=== PATIENT | male | born 1950 | race Caucasian/White ===

== ENCOUNTER 2016-11-14 21:16 | Emergency (ER) | payer BC ==
[~2016-11-14 21:16] MED LIST: ASAB PO; COREG6 PO; CRESTOR10 PO; CRESTOR40 MG PO; HYZAAR 100/25 T1 TAB PO; HYZAAR 50/12.51 TAB PO; JANTOVEN1 MG PO; JANTOVEN3 MG PO; JANTOVEN4 MG PO; L20 PO; LOP25 PO; LOVENOX SC; LOVENOX80 SC; PACERONE100 MG PO; PACERONE200 MG PO; ZETIA PO; ZOCOR20 PO; ZOCOR80 MG PO
[2016-11-14 22:09] LABS: BASOPHILS 0.4 %; BASOPHILS ABSOLUTE 0.03 10/3/uL (0.0-0.16); EOSINOPHILS 2.7 %; ER CBC TAT 0 Hrs 05 Mins; HEMATOCRIT 38.9 % (40.0-51.0); HEMOGLOBIN 13.5 g/dL (13.6-17.8); IMMATURE GRANULOCYTES 0.1 %; IMMATURE GRANULOCYTES ABSOLUTE 0.01 10/3/uL (0.0-0.11); LYMPHOCYTES 22.6 %; LYMPHOCYTES ABSOLUTE 1.66 10/3/uL (0.67-4.30); MEAN CORPUS HGB CONC 34.7 g/dL (32.0-36.0); MEAN CORPUSCULAR HEMOGLOB 30.5 pg (26.0-34.0); MEAN PLATELET VOLUME 10.1 fL (9.2-13.0); MONOCYTES 10.2 %; MONOCYTES ABSOLUTE 0.75 10/3/uL (0.21-1.20); PLATELET COUNT 169 10/3/uL (150-400); RBC DISTRIBUTION WIDTH 12.8 % (12.0-16.0); RED CELL COUNT 4.43 10/6/uL (4.7-6.1); WHITE BLOOD CELLS 7.4 10/3/uL (4.5-10.5)
[2016-11-14 22:14] LABS: MANUAL DIFF NO %; MEAN CORPUSCULAR VOLUME 87.8 fL (80-100)
[2016-11-14 22:25] LABS: ALBUMIN 3.5 G/DL (3.5-5.0); BUN (BLOOD UREA NITROGEN) 15 MG/DL (6-23); CALCIUM, SERUM 8.7 MG/DL (8.5-10.4); CHLORIDE, SERUM 106 MMOL/L (96-112); CO2 (CARBON DIOXIDE) 27 MMOL/L (24-34); CREATININE 1.24 MG/DL (0.70-1.30); GFR AFRICAN AMERICAN 70 ML/MIN (>=60); GFR NON AFRICAN AMERICAN 60 ML/MIN (>=60); GLOBULIN 3.6 G/DL (2.5-4.1); POTASSIUM, SERUM 3.8 MMOL/L (3.5-5.3); SGOT(AST) 22 U/L (5-40); SGPT(ALT) 36 U/L (5-65); SODIUM, SERUM 142 MMOL/L (135-148); TOTAL PROTEIN 7.1 G/DL (6.0-8.5)
[2016-11-14 22:26] LABS: ALKALINE PHOSPHATASE 97 U/L (45-117); GLUCOSE, SERUM 165 MG/DL (60-99)
== END 2016-11-14 23:04 | disposition home or self-care (01) ==
LOC: ER 21:16
PROVIDERS: Emergency Medicine
DX: R55 Syncope and collapse (principal); E78.5 Hyperlipidemia, unspecified; I10 Essential (primary) hypertension; Z86.73 Personal history of transient ischemic attack (TIA), and cerebral infarction without residual deficits; I48.91 Unspecified atrial fibrillation; Z95.5 Presence of coronary angioplasty implant and graft; Z79.01 Long term (current) use of anticoagulants; Z79.899 Other long term (current) drug therapy
CPT/HCPCS: 80053; 85025; 93005; 99284

== ENCOUNTER 2017-02-12 07:47 | Inpatient (IN) | payer MEDICARE, BC ==
--- NOTE | ~2017-02-12 | HP ---
History And Physical [facility] [address] [place]. [address] NAME: SYLVIA LEWIS : 48 STATUS : ADM Kuldip PAT#: [id number] AGE: 66 ADM/REG DATE : 02/12/17 MR#: [id number] REPORT SERV DATE: 02/13/17 DICTATED BY: SUSANNE THOMAS DATE: 02/12/17 REPORT STATUS : Draft TRANSCRIBED BY: MODL DATE: 02/12/17 DATE OF ADMISSION: 02/12/2017 RESIDENT: Eliud Ferrer MD. CHIEF COMPLAINT: Abdominal pain, nausea. HISTORY OF PRESENT ILLNESS: This is a 66-year-old male with a history of atrial fibrillation on Pradaxa with 24 hours of worsening nausea, vomiting, and umbilical abdominal pain. Of note, he had a recent admit at an outside hospital for similar complaints and was discharged this past Saturday having received IV fluid resuscitation and was tolerating p.o. at that time. However, he states at home, when he tried to have dinner, he had immediate return of his nausea and vomiting and abdominal pain. The patient stated he has had slow progression of these symptoms for approximately the past week. However, he has never had these symptoms before this. Denies any fevers or chills. Denies any recent weight loss. States his last bowel movement was approximately one week ago, at that time, it was not bloody, but was diarrhea. I think his last flatus was approximately 24-48 hours ago. Denies any chest pain, shortness of breath, headache, or dysuria. PAST MEDICAL HISTORY: Atrial fibrillation, COPD, hyperlipidemia, CVA. PAST SURGICAL HISTORY: Colonoscopy, exploratory laparotomy with partial sigmoidectomy for a large polyp, surgery performed by Dr. Palomares in 2010. ALLERGIES: NO KNOWN DRUG ALLERGIES. HOME MEDICATIONS: Statin, Pradaxa, Zetia, carvedilol, and albuterol. FAMILY HISTORY: Cervical cancer. SOCIAL HISTORY: Prior smoker, quit approximately nine years ago. Denies any alcohol or illicit drug use. REVIEW OF SYSTEMS: Pertinent positives and negatives as above in the HPI. Full 12-point review of systems was completed with no other pertinent findings. PHYSICAL EXAMINATION: VITAL SIGNS: Temperature 97.5, blood pressure 118/61, heart rate 108, respiration of 19 with 98% on room air. GENERAL: This is an adult white male, in no acute distress. He is alert and oriented x3. He is not toxic appearing. CARDIOVASCULAR: Irregularly irregular rhythm. PULMONARY: Clear to auscultation bilaterally. ABDOMEN: Hypoactive bowel sounds. Abdomen is soft. It is mildly distended. It is mildly tender to palpation focally at the umbilicus. There is no rebound. No guarding. No History And Physical [address] [place]. [address] NAME: SYLVIA LEWIS : 49 STATUS : ADM Kuldip PAT#: [id number] AGE: 66 ADM/REG DATE : 02/12/17 MR#: [id number] REPORT SERV DATE: 02/13/17 DICTATED BY: SUSANNE THOMAS DATE: 02/12/17 REPORT STATUS : Draft TRANSCRIBED BY: ANSHUL DATE: 02/12/17 diffuse peritonitis. There are no masses or hernias noted. LABORATORY DATA: White count 7.4, hematocrit 46.8, platelets 182. Renal panel significant for a creatinine of 1.74. Urinalysis was negative. All LFTs are mildly elevated and as follows: Total bilirubin 1.8, alkaline phosphatase 148, ALT 73, AST 56, lipase 416. IMAGING: CT of the abdomen and pelvis significant for small bowel obstruction likely transition point mid to distal ilium. ASSESSMENT AND PLAN: This is a 66-year-old male with history of atrial fibrillation, cerebrovascular accident on Pradaxa with a small-bowel obstruction. 1. The patient is currently hemodynamically stable. He is nontoxic and has a benign abdomen. We will continue n.p.o. with NG tube and IV fluid resuscitation. We will plan for morning flat and upright abdominal x-ray. The patient does not have return of bowel function. No improvement in symptoms. We will likely need a small-bowel follow- through contrast study in the next one to two days. 2. Hospitalist has been consulted for his multiple medical issues and appreciate their recommendation. We will hold Pradaxa for now given possibility of intervention. GI has been following the patient for his need for colonoscopy and also given his elevated LFTs, although this may be secondary to his nausea and vomiting. 3. Acute kidney injury. We will continue IV fluids. Strict I's and O's. We will recheck a morning CMP. [place]/ANSHUL Susanne Thomas MD / [id number] CC: MD Ortiz Grant M.D.
--- NOTE | ~2017-02-12 | DS ---
Discharge Summary [facility] [address] [place]. [address] NAME: SYLVIA LEWIS : 49 STATUS : DIS IN PAT#: [id number] AGE: 66 ADM/REG DATE : 02/12/17 MR#: [id number] REPORT SERV DATE: 02/22/17 DICTATED BY: SUSANNE THOMAS DATE: 02/21/17 REPORT STATUS : Draft TRANSCRIBED BY: MODBlayne DATE: 02/21/17 Data Collection from hospitalization DISCHARGE DIAGNOSES: 1. Small bowel obstruction - resolving. 2. Former smoker. 3. History of mini stroke. 4. Chronic obstructive pulmonary disease. 5. History of atrial fibrillation. 6. Hyperlipidemia. CONSULTATIONS: 1. Marlee Kennedy M.D. 2. Elaine Lopez M.D. 3. Juan Santoro M.D. PROCEDURES PERFORMED: CT scan of the abdomen and pelvis without contrast on 02/12/2017. MEDICATIONS: ProAir two puffs via inhaler as needed, Coreg 6.25 mg twice a day, Pradaxa 150 mg twice a day, Zetia 10 mg at bedtime, Protonix one tablet daily, and Zocor 20 mg daily. CONDITION AT DISCHARGE: Stable. DISPOSITION: The patient was discharged home on a soft diet with activities as instructed. He would follow up with Dr. Ortiz Humphrey on 03/04/2017. He would follow up with Dr. Susanne Thomas as needed. He would follow up with Dr. Elaine Lopez as instructed. He would follow up with Dr. Juan Santoro on 02/28/2017. HOSPITAL COURSE: This is a 66-year-old man who has a history of atrial fibrillation. He is on Pradaxa with 24 hours of worsening nausea, vomiting, and umbilical abdominal pain. He was a recent admit at an outside hospital for similar complaints and had been discharged Saturday prior to this admission having received IV fluid resuscitation. He was tolerating oral intake at that time. The patient said that at home when he tried to have dinner, he had the immediate return of his nausea, vomiting, and abdominal pain. He said that he had slow progression of these symptoms for approximately the past week, however, he has never had these symptoms previously. He denied any fevers or chills. He denied weight loss. He said that his last bowel movement was approximately one week ago. At that time, it was not bloody, but it was diarrhea. He said he last passed flatus 24 to 48 hours prior to this admission. He was admitted to the hospital for further evaluation and treatment. Upon admission, creatinine level was 1.74. He was currently hemodynamically stable. He was nontoxic. His abdomen was benign. He remained n.p.o. with an NG tube and IV fluid resuscitation. The patient does not have return of bowel function at this time. If he did not have return of bowel function and if there were no improvement in his symptoms, he would likely need a small bowel followthrough contrast study in the next one to two days. Pradaxa was going to be held for now. He had elevated liver function tests. He was seen by Dr. Marlee Kennedy regarding management of chronic medical problems. The patient said that he has a history of atrial fibrillation for which he takes Pradaxa. He had a mini stroke in Discharge Summary [address] [address] NAME: SYLVIA LEWIS : 48 STATUS : DIS IN PAT#: [id number] AGE: 66 ADM/REG DATE : 02/12/17 MR#: [id number] REPORT SERV DATE: 02/22/17 DICTATED BY: SUSANNE THOMAS DATE: 02/21/17 REPORT STATUS : Draft TRANSCRIBED BY: ANSHUL DATE: 02/21/17 the past without any residual deficits. Beta-haydee, carvedilol, and Pradaxa would be continued once it was okay with surgery. Right now, the patient had received a morning dose and we would keep Pradaxa on hold until it was okay to restart. The patient did not have any chest pain at this time. Serial troponins would be checked. The patient does have mild acute kidney injury secondary to dehydration. IV fluids had been started. Liver enzymes were mildly elevated. Cholesterol medications were going to be held. He has had a CT scan of the abdomen and pelvis without contrast. The following day, he was seen by Dr. Elaine Lopez regarding bowel obstruction and elevated liver enzymes. The patient has what appears to be an obstruction in the small bowel at the level of the proximal ileum, possible scar tissue. Liver enzymes were elevated, the exact etiology was unclear at this point. He does have a history of alcohol. His enzymes were improving at this time. From a liver standpoint, we would follow enzymes and do some other serologies. He was also seen by Dr. Juan Santoro regarding abnormal electrocardiogram. The electrocardiogram was ordered and showed his chronic atrial fibrillation. He also has some lateral ST changes. He had no cardiovascular issues or other symptoms in the past several weeks or even months. The echocardiogram demonstrated atrial fibrillation with a rate in the 80s. He had a normal axis. There was good R-wave progression. He had lateral ST depression, somewhat upsloping. Creatinine level was 1.5. Cardiac enzymes were negative. IV heparin was started, this would be discontinued at any time if he needed some sort of procedure or surgery. We would watch for bleeding. No further intervention for the atrial fibrillation was required at this time. He does have lateral changes which may just be due to his noncardiac illness at this time. He denied chest pain. Beta-haydee was continued. Anticoagulation was added. Repeat electrocardiogram would be performed. On 02/14/2017, he was feeling better. He had multiple bowel movements. After a small bowel followthrough was performed, the NG tube was removed. Clear liquids were being provided. Discharge planning was performed. He said he felt much better. He had no palpitations or chest pain. A nuclear medicine stress test would be performed as an outpatient. Small bowel obstruction was resolving. On 02/15/2017, he was feeling good. He was tolerating his regular diet. He had a bowel movement. The small bowel obstruction had resolved. Discharge instructions were given. Due to his improved and stable condition, he was discharged home with the above-stated instructions. Information collected by: Jazmin Hendrix I submit the above information as my discharge summary. TG/MODL Susanne Thomas MD / [id number] CC: MD Ortiz Grant M.D. Vijaykurmar Patel, M.D. Discharge Summary [address] [address] NAME: SYLVIA LEWIS : 49 STATUS : DIS IN PAT#: [id number] AGE: 66 ADM/REG DATE : 02/12/17 MR#: [id number] REPORT SERV DATE: 02/22/17 DICTATED BY: SUSANNE THOMAS OMER DATE: 02/21/17 REPORT STATUS : Draft TRANSCRIBED BY: MODL DATE: 02/21/17 Juan Santoro M.D.
--- NOTE | ~2017-02-12 | CN ---
Consultation Report [address] [place]. [address] NAME: SYLVIA LEWIS : 48 STATUS : ADM IN PAT#: [id number] AGE: 66 ADM/REG DATE : 02/12/17 MR#: [id number] REPORT SERV DATE: 02/13/17 DICTATED BY: JUAN SANTORO DATE: 02/13/17 REPORT STATUS : Draft TRANSCRIBED BY: MODL DATE: 02/13/17 CONSULTATION DATE OF CONSULTATION: 02/13/2017 REASON FOR THE VISIT: Abnormal electrocardiogram. HISTORY OF PRESENT ILLNESS: Mr. Lewis is a 66-year-old man known to me with chronic atrial fibrillation and history of coronary artery disease. He has been admitted for gastrointestinal problems including a small bowel obstruction it seems. He denies any chest pain. Electrocardiogram has been ordered and shows his chronic atrial fibrillation. He does also seem to have some lateral ST changes. He has had no cardiovascular issues or other symptoms in the last several weeks or even months. PAST MEDICAL HISTORY: 1. Chronic atrial fibrillation. 2. History of ventricular tachycardia. 3. History of hypertrophic cardiomyopathy. 4. Hypertension. 5. Hyperlipidemia. 6. Coronary artery disease. FAMILY HISTORY: There is heart disease in his family. SOCIAL HISTORY: This is negative. Family is in the room. Nonsmoker now. HOME MEDICATIONS: 1. Albuterol inhaler. 2. Coreg 6.25 mg b.i.d. 3. Pradaxa 150 mg b.i.d. 4. Zetia 10 mg every night at bedtime. 5. Zocor 10 mg daily. ALLERGIES: NO KNOWN DRUG ALLERGIES. REVIEW OF SYSTEMS: A 10-system review was asked and is negative except for noted above in the history of present illness. PHYSICAL EXAMINATION: VITAL SIGNS: Temperature 98.3, heart rate 80, blood pressure 105/70. GENERAL: Mr. Lewis is a well-developed man in no acute distress. He is alert and oriented to person and place. HEENT: Negative. He is not dehydrated. Consultation Report [address] [place]. [address] NAME: SYLVIA LEWIS : 49 STATUS : ADM IN PAT#: [id number] AGE: 66 ADM/REG DATE : 02/12/17 MR#: [id number] REPORT SERV DATE: 02/13/17 DICTATED BY: JUAN SANTORO DATE: 02/13/17 REPORT STATUS : Draft TRANSCRIBED BY: MODL DATE: 02/13/17 NECK: No JVD in his neck. LUNGS: Clear. HEART: Tones are irregular. Slight murmur is heard. ABDOMEN: Demonstrates a little tenderness to palpation. He has an NG tube in. EXTREMITIES: Does not show edema. NEUROLOGIC: He is intact with normal speech and normal equal movement of all four extremities. SKIN: Does not show any rash or bruising. ELECTROCARDIOGRAMS: Demonstrate atrial fibrillation with a rate in the 80s. He has a normal axis. Good R-wave progression. He has a lateral ST depression, somewhat upsloping. LABORATORY DATA: White blood cell count 6, hematocrit 44, and platelet count 173. INR 1.3. Cardiac enzymes are negative. Sodium 141, potassium 4.0, BUN 30, and creatinine 1.5. IMPRESSION: 1. Chronic atrial fibrillation. 2. Lateral ST changes. 3. History of coronary artery disease. 4. No cardiovascular symptoms. 5. Small bowel obstruction. PLAN: Right now, Mr. Lewis does need to be on therapeutic anticoagulation because of his elevated CHADS-VASc score and his atrial fibrillation. I will start IV heparin. This can be discontinued at any time if he needs any sort of procedure or surgery. He will watch for bleeding. No further intervention for the atrial fibrillation is required. He does have lateral changes which may just be due to his noncardiac illness at this time. He denies any chest pain. Cardiac enzymes are negative. He will continue his beta haydee. We will add anticoagulation as above. I will repeat the electrocardiogram. As long as he remains stable without any new changes, we may just very well watch this. He and his family are in agreement. Thank you very much for the consultation. [facility]/ANSHUL Juan Santoro M.D. / [id number] CC: Emiliano Thomas MD Consultation Report [address] [place]. [address] NAME: SYLVIA LEWIS : 49 STATUS : ADM IN PAT#: [id number] AGE: 66 ADM/REG DATE : 02/12/17 MR#: [id number] REPORT SERV DATE: 02/13/17 DICTATED BY: JUAN SANTORO DATE: 02/13/17 REPORT STATUS : Draft TRANSCRIBED BY: ANSHUL DATE: 02/13/17 Ortiz Humphrey M.D.
--- NOTE | ~2017-02-12 | CN ---
Consultation Report [facility] [address] [place]. [address] NAME: SYLVIA LEWIS : 48 STATUS : ADM Kuldip PAT#: [id number] AGE: 66 ADM/REG DATE : 02/12/17 MR#: [id number] REPORT SERV DATE: 02/12/17 DICTATED BY: TRISHA ALMARAZ DATE: 02/12/17 REPORT STATUS : Draft TRANSCRIBED BY: MODL DATE: 02/12/17 CONSULTATION DATE OF CONSULTATION: 02/12/2017 REASON FOR CONSULT: Management of chronic medical problems. HISTORY OF PRESENT ILLNESS: The patient is a very pleasant 66-year-old male, who is admitted under General Surgery, Dr. Thomas for small bowel obstruction. I am consulted for patient's chronic medical problems. The patient reported that he was having diarrhea initially and then he stopped having bowel movements for this reason, he went to [place], where he was getting IV fluids, and then afterwards he was discharged with improvement. He came back with complaining of abdominal pain, nausea, and no evidence of bowel movements. So, emergency room contacted the general surgeon to admit. General surgeon Dr. Thomas asked me to see patient for his medical problem. The patient says that he has history of atrial fibrillation, for which he takes Pradaxa. He had a mini stroke in the past without any residual deficit. He denies any chest pain, no shortness of breath. He has history of COPD, he used to smoke, but currently he does not smoke. He denies any history of heart attacks. No thyroid disease. No diabetes. SURGICAL HISTORY: Polyp surgically removed from his colon, it was not a cancer according to the patient. ALLERGIES: NO KNOWN DRUG ALLERGIES. SOCIAL HISTORY: Quit smoking nine years ago. He used to smoke two packs per day. No alcohol. No recreational drug use. FAMILY HISTORY: Mother at age of 78 from cervical cancer. Father was healthy according to the patient. HOME MEDICATIONS: Albuterol two puffs inhaled as needed, carvedilol 6.25 p.o. b.i.d., Pradaxa 150 p.o. b.i.d. the patient already took in the morning. Zetia 10 mg a day and simvastatin 20 mg a day. REVIEW OF SYSTEMS: All 14-point review of system done. No chest pain. No shortness of breath. No fever. All 14-point review of systems done and negative except what is stated in the history of present illness. PHYSICAL EXAMINATION: GENERAL: Well-nourished, well-developed male, not in acute distress. Resting quietly. VITAL SIGNS: Blood pressure 128/75, temperature 98, heart rate 91, respiratory rate 22, oxygen saturation 98 on room air. Consultation Report [address] [place]. [address] NAME: SYLVIA LEWIS : 48 STATUS : ADM Kuldip PAT#: [id number] AGE: 66 ADM/REG DATE : 02/12/17 MR#: [id number] REPORT SERV DATE: 02/12/17 DICTATED BY: TRISHA ALMARAZ DATE: 02/12/17 REPORT STATUS : Draft TRANSCRIBED BY: ANSHUL DATE: 02/12/17 HEENT: Head atraumatic and normocephalic. Conjunctivae clear. Pupils are equal and reactive to light and accommodation. Extraocular muscles are intact. NECK: Supple. Trachea is midline. No supraclavicular or cervical lymphadenopathy. LUNGS: Diminished breath sounds bilaterally. Decreased respiratory effort. CARDIOVASCULAR: Irregularly irregular rate and rhythm. Point of maximal impulse not displaced. ABDOMEN: Soft. There is mild tenderness to palpation in the mid abdominal area. There is no guarding. No rebound. Completely benign abdominal examination. Slightly diminished bowel sounds. EXTREMITIES: No clubbing, cyanosis, or edema. SKIN: Normal color and turgor. LABORATORY DATA: Sodium 139, potassium 4.5, chloride 100, carbon dioxide 32, BUN 24, creatinine 1.74, blood sugar 123, total bilirubin 1.8. Alkaline phosphatase 148, ALT 73, AST 56, lipase 416, white count 7.4, hemoglobin 15.9, hematocrit 46.8, platelet count is 182. Urinalysis showed no evidence of urinary infection. CT of the abdomen and pelvis showed small bowel obstruction, probably in the proximal ileum. The stomach is distended and fluid-filled loops of jejunum are distended and fluid-filled measuring to 4.9 cm in diameter. His x-ray KUB done showed NG tube in the fundus of the stomach. EKG showed atrial fibrillation with a rate of 82, some a ST-T waves abnormality, with prolonged QT interval, and some LVH changes. ASSESSMENT AND PLAN: This is a 66-year-old male, admitted under General Surgeon, Dr. Thomas for his small-bowel obstruction. Small-bowel obstruction per Dr. Thomas. I am consulted for medical problems. 1. Atrial fibrillation, currently rate controlled. We will continue his beta haydee, carvedilol, and Pradaxa needs to be continued once it is okay with Dr. Thomas. Right now, the patient had a morning dose will keep Pradaxa on hold until Dr. Thomas will say if it is okay to restart. The patient does not have any chest pain. We will check just serial troponins on this patient. 2. Mild acute kidney injury, secondary to dehydration. The patient is already started on IV fluids per general surgeon. 3. Mildly elevated liver enzymes. We will hold his cholesterol medications, but this could be related also to some biliary problems. We will ask the patient's GI doctor Dr. Joellen Lopez to look at it. Since, the patient also said that he needs to see his hospice admitting clerk and for this reason, he was discharged from [facility] yesterday. We will follow up on this patient. MG/MODL Trisha Consultation Report [address] [address] NAME: SYLVIA LEWIS : 48 STATUS : ADM Kuldip PAT#: [id number] AGE: 66 ADM/REG DATE : 02/12/17 MR#: [id number] REPORT SERV DATE: 02/12/17 DICTATED BY: TRISHA ALMARAZ DATE: 02/12/17 REPORT STATUS : Draft TRANSCRIBED BY: MODBlayne DATE: 02/12/17 Leesa Almaraz / [id number] CC: MD Ortiz Grant M.D.
--- NOTE | ~2017-02-12 | CN ---
Consultation Report [facility] [address] [place]. [address] NAME: SYLVIA LEWIS : 48 STATUS : ADM Kuldip PAT#: [id number] AGE: 66 ADM/REG DATE : 02/12/17 MR#: [id number] REPORT SERV DATE: 02/13/17 DICTATED BY: JULIET LOPEZ DATE: 02/13/17 REPORT STATUS : Draft TRANSCRIBED BY: MODL DATE: 02/13/17 CONSULTATION. DATE OF CONSULTATION: 02/13/2017 REASON FOR CONSULTATION: Bowel obstruction and elevated liver enzymes. HISTORY OF PRESENT ILLNESS: Mr. Lewis is a 66-year-old gentleman who was pretty much in his usual state of health until about a few weeks ago when he started experiencing some lower abdominal discomfort. This progressed to the extent that he then started having difficulties that he was not moving his bowels, got constipated, then got distended with nausea and vomiting and started throwing up. He says it finally cleared up with diarrhea and then the nausea, vomiting stopped. A few days later, he had the same issue. He went to the emergency room at [facility], where he was evaluated and admitted to [facility], in there for 2 days. He said the obstruction resolved again. He was hydrated, he started moving his bowels, and was discharged. He went home on Saturday of the [facility] , had something to eat on the [facility] evening and then later on started having the same issue back again and therefore came in here to the emergency room this time to [facility]. On admission, he had a CT of the abdomen and pelvis, which revealed small bowel obstruction pattern, probably in the proximal ileum. His labs revealed a total bilirubin of 1.8 (it is important to note that the patient drinks about 5-6 beers on a daily basis). The bilirubin since then has dropped today to 1.2. His alkaline phosphatase was 148, down to 121. His ALT was 73, it is 71 today. AST was 56, it is 48 today. He did have a lipase of 416 on admission, which is down to 327 and the amylase is normal. His BUN is elevated, it was 24 yesterday, it is 30 today and creatinine was 1.74, yesterday is 1.51 today. His white count which was 7.4, is 6.4, and his hemoglobin which was 15.9 is down to 14.5, which is still I believe a little high for him. Platelets are 173,000 and INR is 1.3. MEDICAL HISTORY: 1. History of alcohol use, drinking about six cans of beer on a daily basis. 2. History of atrial fibrillation, on Xarelto. 3. History of a TIA in the past. 4. Hypertension. 5. Hyperlipidemia. HOME MEDICATIONS: Albuterol, Coreg, Pradaxa, Zetia, and Zocor. HABITS: Does not smoke but drinks on a regular basis, six cans of beer a day. FAMILY HISTORY: Sister and mother of cervical cancer. PAST SURGERIES: Include colon surgery for removal of a colon polyp, which was unresectable Consultation Report [address] [place]. [address] NAME: SYLVIA LEWIS : 48 STATUS : ADM Kuldip PAT#: [id number] AGE: 66 ADM/REG DATE : 02/12/17 MR#: [id number] REPORT SERV DATE: 02/13/17 DICTATED BY: JULIET LOPEZ DATE: 02/13/17 REPORT STATUS : Draft TRANSCRIBED BY: ANSHUL DATE: 02/13/17 on endoscopy. REVIEW OF SYSTEMS: CONSTITUTIONAL: Describes the general health to be fair. No fever, chills, weight loss, anorexia, weakness, dizziness, or night sweats. HEENT: Vision normal and hearing normal. GENITOURINARY: Normal. CARDIOVASCULAR: Atrial fibrillation, on Xarelto. GI: As mentioned above. MUSCULOSKELETAL: Negative. NEUROLOGICAL: History of CVA. ENDOCRINE: Negative. PHYSICAL EXAMINATION: GENERAL: He is a fully alert, oriented gentleman, presently in no acute distress, has an NG tube draining green bile. NECK: Supple without lymphadenopathy, thyromegaly, or carotid bruits. HEENT: Exam is normal. LUNGS: Reveal good air entry bilaterally. No rales or rhonchi. CVS: Normal except for atrial fibrillation. ABDOMEN: Soft, nondistended, nontender. No mass, guarding, rigidity, or rebound. Liver and spleen not palpable. Clinically no ascites. EXTREMITIES: Without edema. LABORATORY DATA: Labs and other workup as mentioned above. Acute abdominal series done yesterday reviewed by me revealing air-fluid levels. IMPRESSION: 1. What appears to be an obstruction in the small bowel at the level of the proximal ileum, possibly scar tissue, has had surgery before for colon polyp. No other surgeries. Obviously need to rule out other etiologies. 2. Elevated liver enzymes. Exact etiology unclear at this point. Does have history of alcohol, enzymes are getting better. Other problems as mentioned including atrial fibrillation. RECOMMENDATIONS: 1. From liver standpoint, we will follow enzymes and do some other serologies. 2. As far as bowel obstruction, we will defer to Dr. Thomas and will follow. CHERIE/ANSHUL Elaine Consultation Report [address] [place]. [address] NAME: SYLVIA LEWIS : 48 STATUS : ADM Kuldip PAT#: [id number] AGE: 66 ADM/REG DATE : 02/12/17 MR#: [id number] REPORT SERV DATE: 02/13/17 DICTATED BY: JULIET LOPEZ DATE: 02/13/17 REPORT STATUS : Draft TRANSCRIBED BY: ANSHUL DATE: 02/13/17 Leesa Lopez / [id number] CC: MD Ortiz Grant M.D.
[2017-02-12 08:41] LABS: BASOPHILS 0.5 %; BASOPHILS ABSOLUTE 0.04 10/3/uL (0.0-0.16); EOSINOPHILS 2.3 %; EOSINOPHILS ABSOLUTE 0.17 10/3/uL (0.0-0.53); ER CBC TAT 0 Hrs 05 Mins; HEMATOCRIT 46.8 % (40.0-51.0); HEMOGLOBIN 15.9 g/dL (13.6-17.8); IMMATURE GRANULOCYTES 0.3 %; IMMATURE GRANULOCYTES ABSOLUTE 0.02 10/3/uL (0.0-0.11); LYMPHOCYTES ABSOLUTE 1.41 10/3/uL (0.67-4.30); MEAN CORPUSCULAR HEMOGLOB 30.8 pg (26.0-34.0); MEAN CORPUSCULAR VOLUME 90.7 fL (80-100); MEAN PLATELET VOLUME 10.4 fL (9.2-13.0); MONOCYTES 21.9 %; MONOCYTES ABSOLUTE 1.63 10/3/uL (0.21-1.20); NEUTROPHILS ABSOLUTE 4.16 10/3/uL (2.02-8.40); PLATELET COUNT 182 10/3/uL (150-400); RBC DISTRIBUTION WIDTH 14.8 % (12.0-16.0); RED CELL COUNT 5.16 10/6/uL (4.7-6.1); WHITE BLOOD CELLS 7.4 10/3/uL (4.5-10.5)
[2017-02-12 08:42] LABS: MANUAL DIFF NO %
[2017-02-12 08:57] LABS: CHLORIDE, SERUM 100 MMOL/L (96-112); POTASSIUM, SERUM 4.5 MMOL/L (3.5-5.3); SGOT(AST) 56 U/L (5-40); SGPT(ALT) 73 U/L (5-65); SODIUM, SERUM 139 MMOL/L (135-148)
[2017-02-12 08:59] LABS: A/G RATIO 0.9 (0.7-1.9); ALBUMIN 4.4 G/DL (3.5-5.0); ALKALINE PHOSPHATASE 148 U/L (45-117); BUN (BLOOD UREA NITROGEN) 24 MG/DL (6-23); CO2 (CARBON DIOXIDE) 32 MMOL/L (24-34); CREATININE 1.74 MG/DL (0.70-1.30); GFR AFRICAN AMERICAN 46 ML/MIN (>=60); GFR NON AFRICAN AMERICAN 40 ML/MIN (>=60); GLOBULIN 4.8 G/DL (2.5-4.1); GLUCOSE, SERUM 123 MG/DL (60-99); TOTAL BILIRUBIN 1.8 MG/DL (0-1.2); TOTAL PROTEIN 9.2 G/DL (6.0-8.5)
[2017-02-12 09:02] LABS: BAND NEUTROPHILS 22 %; BASOPHILS 1 %; BASOPHILS ABSOLUTE (CALC) 0.07 10/3/uL (0.0-0.16); EOSINOPHILS 2 %; EOSINOPHILS ABSOLUTE (CALC) 0.15 10/3/uL (0.0-0.53); ER DIFF TAT 0 Hrs 26 Mins; LYMPHOCYTES 21 %; LYMPHOCYTES ABSOLUTE (CALC) 1.55 10/3/uL (0.67-4.30); MONOCYTES 19 %; MONOCYTES ABSOLUTE (CALC) 1.41 10/3/uL (0.21-1.20); NEUTROPHILS ABSOLUTE (CALC) 4.22 10/3/uL (2.02-8.40); SEGMENTED NEUTROPHIL (0) 35 %; TOTAL NUCLEATED CELLS 100
[2017-02-12 09:03] LABS: PLATELET ESTIMATE ADQ (ADEQUATE); RBC MORPHOLOGY NORM (NORMAL); TOXIC GRANULATION 1+
[2017-02-12 09:18] LABS: ASCORBIC ACID (UR NOT ORDER) NEG (NEG); BILIRUBIN, URINE NEGATIVE (NEG); ER URINALYSIS TAT 0 Hrs 18 Mins; KETONE, URINE TRACE MG/DL (NEG); LEUKOCYTE ESTERASE(NOT OR NEG (NEG); NITRITE (URINE) NEG (NEG); WBC (NOT ORDERED) (RFLEX) 4 (0-5)
[2017-02-12] MEDS ORDERED: COREG6 PO (12:51)
[2017-02-12] MEDS ORDERED: PRADAXA150 MG PO (12:51)
[2017-02-12] MEDS ORDERED: ZOCOR20 PO (12:52)
[2017-02-12] MEDS ORDERED: PROAIR HFA INH (12:52)
[2017-02-12] MEDS ORDERED: ZETIA PO (12:52)
[2017-02-12 15:58] LABS: TROPONIN I 0.04 NG/ML (<0.05)
[2017-02-13 05:07] LABS: BASOPHILS 0.3 %; BASOPHILS ABSOLUTE 0.02 10/3/uL (0.0-0.16); EOSINOPHILS 2.8 %; EOSINOPHILS ABSOLUTE 0.18 10/3/uL (0.0-0.53); HEMATOCRIT 43.7 % (40.0-51.0); HEMOGLOBIN 14.5 g/dL (13.6-17.8); IMMATURE GRANULOCYTES 0.2 %; IMMATURE GRANULOCYTES ABSOLUTE 0.01 10/3/uL (0.0-0.11); LYMPHOCYTES 32.9 %; LYMPHOCYTES ABSOLUTE 2.11 10/3/uL (0.67-4.30); MEAN CORPUS HGB CONC 33.2 g/dL (32.0-36.0); MEAN CORPUSCULAR HEMOGLOB 30.3 pg (26.0-34.0); MEAN CORPUSCULAR VOLUME 91.4 fL (80-100); MEAN PLATELET VOLUME 10.3 fL (9.2-13.0); MONOCYTES 14.5 %; MONOCYTES ABSOLUTE 0.93 10/3/uL (0.21-1.20); NEUTROPHILS 49.3 %; NEUTROPHILS ABSOLUTE 3.16 10/3/uL (2.02-8.40); PLATELET COUNT 173 10/3/uL (150-400); RBC DISTRIBUTION WIDTH 14.4 % (12.0-16.0); RED CELL COUNT 4.78 10/6/uL (4.7-6.1); WHITE BLOOD CELLS 6.4 10/3/uL (4.5-10.5)
[2017-02-13 05:08] LABS: MANUAL DIFF NO %
[2017-02-13 05:26] LABS: A/G RATIO 0.9 (0.7-1.9); ALBUMIN 3.7 G/DL (3.5-5.0); ALKALINE PHOSPHATASE 121 U/L (45-117); BUN (BLOOD UREA NITROGEN) 30 MG/DL (6-23); CALCIUM, SERUM 9.3 MG/DL (8.5-10.4); CHLORIDE, SERUM 106 MMOL/L (96-112); CO2 (CARBON DIOXIDE) 27 MMOL/L (24-34); CREATININE 1.51 MG/DL (0.70-1.30); GAMMA GT 186 U/L (5-85); GFR AFRICAN AMERICAN 55 ML/MIN (>=60); GFR NON AFRICAN AMERICAN 47 ML/MIN (>=60); GLOBULIN 3.9 G/DL (2.5-4.1); GLUCOSE, SERUM 93 MG/DL (60-99); SGOT(AST) 48 U/L (5-40); SGPT(ALT) 71 U/L (5-65); SODIUM, SERUM 141 MMOL/L (135-148); TOTAL BILIRUBIN 1.2 MG/DL (0-1.2); TOTAL PROTEIN 7.6 G/DL (6.0-8.5)
[2017-02-13 05:38] LABS: INTERNATIONAL NORMAL RATI 1.3 UNITS (-)
[2017-02-13 10:03] LABS: HEPATITIS B SURFACE ANTIGEN NON-REACTIVE (NON-REACT)
[2017-02-13 10:29] LABS: HEPATITIS C ANTIBODY NON-REACTIVE (NON-REACT)
[2017-02-13 10:30] LABS: HEPATITIS B CORE AB IGM NON-REACTIVE (NON-REAC)
[2017-02-13 10:31] LABS: HEP A ANTIBODY IGM NON-REACTIVE (NON-REACT)
[2017-02-14 05:35] LABS: BASOPHILS 0.4 %; BASOPHILS ABSOLUTE 0.02 10/3/uL (0.0-0.16); EOSINOPHILS ABSOLUTE 0.11 10/3/uL (0.0-0.53); LYMPHOCYTES ABSOLUTE 1.51 10/3/uL (0.67-4.30); MEAN CORPUS HGB CONC 33.2 g/dL (32.0-36.0); MEAN CORPUSCULAR HEMOGLOB 30.4 pg (26.0-34.0); MEAN CORPUSCULAR VOLUME 91.6 fL (80-100); MONOCYTES 15.4 %; MONOCYTES ABSOLUTE 0.86 10/3/uL (0.21-1.20); NEUTROPHILS 55.2 %; NEUTROPHILS ABSOLUTE 3.09 10/3/uL (2.02-8.40); PLATELET COUNT 152 10/3/uL (150-400); RBC DISTRIBUTION WIDTH 14.4 % (12.0-16.0); RED CELL COUNT 4.28 10/6/uL (4.7-6.1); WHITE BLOOD CELLS 5.6 10/3/uL (4.5-10.5)
[2017-02-14 05:37] LABS: HEMATOCRIT 39.2 % (40.0-51.0); MANUAL DIFF NO %
[2017-02-14 05:38] LABS: INTERNATIONAL NORMAL RATI 1.3 UNITS (-); PROTIME (NOT ORD) 15.6 SEC (12.0-14.5)
[2017-02-14 05:49] LABS: A/G RATIO 0.9 (0.7-1.9); ALBUMIN 3.2 G/DL (3.5-5.0); ALKALINE PHOSPHATASE 101 U/L (45-117); BUN (BLOOD UREA NITROGEN) 23 MG/DL (6-23); CALCIUM, SERUM 8.6 MG/DL (8.5-10.4); CHLORIDE, SERUM 111 MMOL/L (96-112); CO2 (CARBON DIOXIDE) 27 MMOL/L (24-34); CREATININE 1.22 MG/DL (0.70-1.30); GFR AFRICAN AMERICAN 71 ML/MIN (>=60); GFR NON AFRICAN AMERICAN 61 ML/MIN (>=60); GLOBULIN 3.7 G/DL (2.5-4.1); GLUCOSE, SERUM 79 MG/DL (60-99); POTASSIUM, SERUM 4.3 MMOL/L (3.5-5.3); SGOT(AST) 30 U/L (5-40); SGPT(ALT) 49 U/L (5-65); SODIUM, SERUM 146 MMOL/L (135-148); TOTAL BILIRUBIN 1.1 MG/DL (0-1.2); TOTAL PROTEIN 6.9 G/DL (6.0-8.5)
[2017-02-15 04:13] LABS: BASOPHILS 0.2 %; BASOPHILS ABSOLUTE 0.01 10/3/uL (0.0-0.16); EOSINOPHILS 2.5 %; EOSINOPHILS ABSOLUTE 0.16 10/3/uL (0.0-0.53); HEMATOCRIT 37.7 % (40.0-51.0); HEMOGLOBIN 12.6 g/dL (13.6-17.8); IMMATURE GRANULOCYTES 0.2 %; IMMATURE GRANULOCYTES ABSOLUTE 0.01 10/3/uL (0.0-0.11); LYMPHOCYTES 29.1 %; LYMPHOCYTES ABSOLUTE 1.87 10/3/uL (0.67-4.30); MEAN CORPUS HGB CONC 33.4 g/dL (32.0-36.0); MEAN CORPUSCULAR HEMOGLOB 30.4 pg (26.0-34.0); MEAN CORPUSCULAR VOLUME 90.8 fL (80-100); MEAN PLATELET VOLUME 10.2 fL (9.2-13.0); MONOCYTES 13.1 %; MONOCYTES ABSOLUTE 0.84 10/3/uL (0.21-1.20); NEUTROPHILS 54.9 %; NEUTROPHILS ABSOLUTE 3.54 10/3/uL (2.02-8.40); PLATELET COUNT 149 10/3/uL (150-400); RBC DISTRIBUTION WIDTH 14.3 % (12.0-16.0); RED CELL COUNT 4.15 10/6/uL (4.7-6.1); WHITE BLOOD CELLS 6.4 10/3/uL (4.5-10.5)
[2017-02-15 04:14] LABS: MANUAL DIFF NO %
[2017-02-15 04:26] LABS: CALCIUM, SERUM 8.5 MG/DL (8.5-10.4); CHLORIDE, SERUM 113 MMOL/L (96-112); CO2 (CARBON DIOXIDE) 25 MMOL/L (24-34); CREATININE 1.01 MG/DL (0.70-1.30); GFR AFRICAN AMERICAN 89 ML/MIN (>=60); GFR NON AFRICAN AMERICAN 77 ML/MIN (>=60); GLUCOSE, SERUM 92 MG/DL (60-99); POTASSIUM, SERUM 3.6 MMOL/L (3.5-5.3); SODIUM, SERUM 145 MMOL/L (135-148)
[2017-02-15 04:28] LABS: BUN (BLOOD UREA NITROGEN) 13 MG/DL (6-23)
[2017-02-15] MEDS ORDERED: PROTONIX PO (13:36)
== END 2017-02-15 14:04 | disposition home or self-care (01) | DRG 389 ==
LOC: ER 07:47 → CDU1 12:19 → CDU2 13:05
PROVIDERS: Hospitalist; Nurse Practitioner Family; Surgery
DX: K56.60 Unspecified intestinal obstruction (principal); N17.9 Acute kidney failure, unspecified; I48.2 Chronic atrial fibrillation; J44.9 Chronic obstructive pulmonary disease, unspecified; E78.5 Hyperlipidemia, unspecified; E86.0 Dehydration; I10 Essential (primary) hypertension; I25.10 Atherosclerotic heart disease of native coronary artery without angina pectoris; Z86.73 Personal history of transient ischemic attack (TIA), and cerebral infarction without residual deficits; Z87.891 Personal history of nicotine dependence
CPT/HCPCS: 74000; 74020; 74176; 74250; 80048; 80053; 80074; 81001; 82150; 82977; 83036; 83690; 83735; 83880; 84484; 85025; 85610; 85730; 93005; 96374; 96375; 99285; A9270-GY; C9113; J1200; J2405